=== PATIENT | male | born 1975 | race Two or more races ===

== ENCOUNTER 2024-04-22 00:45 | Emergency (ER) | payer SELFPAY ==
[~2024-04-22] VITALS: Ht 170.2 cm; Wt 77.3 kg
[2024-04-22 00:56] VITALS: TEMP 98.8
[2024-04-22 01:07] LABS: COVID AG,FIA SOURCE NASAL SWAB
[2024-04-22 01:12] LABS: SARS-COV2 (COVID) ANTIGEN,FIA Negative (Negative)
[2024-04-22 01:13] LABS: INFLUENZA TYPE A NEGATIVE FOR TYPE A (NEGATIVE); INFLUENZA TYPE B NEGATIVE FOR TYPE B (NEGATIVE)
[2024-04-22 01:36] LABS: ANION GAP 6 mmol/L (8-16); CALCIUM, TOTAL 8.9 mg/dL (8.8-10.5); CARBON DIOXIDE 30 mmol/L (22-29); CHLORIDE 101 mmol/L (98-107); CREATININE 0.98 mg/dL (0.60-1.30); GLOMERULAR FILTR. RATE CALC > 60 mL/min (>60); GLUCOSE,RANDOM 155 mg/dL (70-110); POTASSIUM 3.5 mmol/L (3.5-5.1); SODIUM SERUM 137 mmol/L (136-145); UREA NITROGEN, BLOOD 19 mg/dL (7-18)
[2024-04-22 01:39] LABS: BASOPHILS % (AUTO) 0.5 % (0.0-2.0); EOSINOPHILS % (AUTO) 1.9 % (1.0-6.0); HEMATOCRIT 46.2 % (41-53); HEMOGLOBIN 15.7 g/dL (13.5-17.5); LYMPHOCYTES % (AUTO) 14.8 % (22.0-44.0); MEAN CORPUSCULAR HEMOGLOBIN 30.5 pg (26.0-34.0); MEAN CORPUSCULAR HGB CONC 33.9 G/dL (31.0-37.0); MEAN CORPUSCULAR VOLUME 90 fL (80-100); MONOCYTES # (AUTO) 0.7 K/uL (0.1-1.0); NEUTROPHILS # (AUTO) 10.7 K/uL (1.8-7.7); NEUTROPHILS % (AUTO) 77.8 % (40.0-70.0); PLATELET COUNT (AUTO) 187 K/uL (150-450); RED BLOOD CELL COUNT(AUTO) 5.14 MIL/uL (4.50-5.90); WHITE BLOOD COUNT (AUTO) 13.8 K/uL (4.5-11.0)
[2024-04-22 01:45] LABS: TROPONIN I-HIGH SENSITIVITY Less Than 4 ng/L (<76)
[2024-04-22 01:55] LABS: B-TYPE NATRIURETIC PEPTIDE < 5 pg/mL (0-100)
[2024-04-22 03:09] LABS: TROPONIN I-HIGH SENSITIVITY Less Than 4 ng/L (<76)
[2024-04-22 03:13] VITALS: BP 152/92; PULSE 62; RESP 16; O2SAT 94
[2024-04-22] MEDS ORDERED: OXYMETAZOLINE HCL 0.05% 15 ML NASAL SPRAY NASAL ONE (04:30)
== END 2024-04-22 04:44 | disposition home or self-care (01) ==
LOC: EMS 00:45
DX: J06.9 Acute upper respiratory infection, unspecified (principal); R06.02 Shortness of breath; R11.0 Nausea; Z20.822 Contact with and (suspected) exposure to COVID-19
CPT/HCPCS: 71045; 80048; 83880; 84484; 85025; 85379; 87804; 93005; 99285; 36415-L1; 36415-TC